=== PATIENT | male | born 1980 | race Caucasian/White ===

== ENCOUNTER 2017-11-14 17:10 | Inpatient (IN) | payer OTHER ==
[2017-11-14 20:10] VITALS: BMI 28.5
--- NOTE | 2017-11-15 01:58 | HP ---
CIWA Score - CIWA Score Nausea/Vomitin Muscle Tremors: 4-Moderate,w/Arms Extend Anxiety: 4-Mod. Anxious/Guarded Agitation: 0-Normal Activity Paroxysmal Sweats: No Perspiration Orientation: 1-Uncertain about Date Tacttile Disturbances: 3-Moderate Itch/Numb/Burn Auditory Disturbances: 0-None Visual Disturbances: 0-None Headache: 2-Mild CIWA-Ar Total Score: 16 Admission ROS S - HPI Chief Complaint: Alcohol withdrawal symptoms Allergies/Adverse Reactions: Allergies Allergy/AdvReac Type Severity Reaction Status Date / Time No Known Drug Allergies Allergy Verified 11/14/17 23:12 History of Present Illness: 37 years old male with a long history of alcohol dependence is seeking admission to detox. Patient reports that this is his first admission to [facility] and first detoxification. He denies any medical history and suicide attempt/ suicidal ideation at this time. He reports insignificant period of sobriety Exam Limitations: No Limitations - Ebola screening Have you traveled outside of the country in the last 21 days: No Have you had contact with anyone from an Ebola affected area: No Have you been sick,other than usual withdrawal symptoms: No Do you have a fever: No - Review of Systems Constitutional: Chills, Malaise, Weakness EENT: reports: No Symptoms Reported Respiratory: reports: No Symptoms reported Cardiac: reports: No Symptoms Reported GI: reports: Poor Appetite, Poor Fluid Intake, Abdominal cramping : reports: No Symptoms Reported Musculoskeletal: reports: No Symptoms Reported Integumentary: reports: No Symptoms Reported Neuro: reports: Headache, Tingling, Tremors Endocrine: reports: No Symptoms Reported Hematology: reports: No Symptoms Reported Psychiatric: reports: Mood/Affect Appropiate, Orientated x3 Other Systems: Reviewed and Negative Patient History - Patient Medical History Hx Anemia: No Hx Asthma: No Hx Chronic Obstructive Pulmonary Disease (COPD): No Hx Cardiac Disorders: No Hx Congestive Heart Failure: No Hx Hypertension: No Hx Hypercholesterolemia: No Hx Pacemaker: No HX Cerebrovascular Accident: No Hx Seizures: No Hx Dementia: No Hx Diabetes: No Hx Gastrointestinal Disorders: No Hx Liver Disease: No Hx Genitourinary Disorders: No Hx Sexually Transmitted Disorders: No Hx Renal Disease (ESRD): No Hx Thyroid Disease: No Hx Human Immunodeficiency Virus (HIV): No Hx Hepatitis C: No Hx Depression: No Hx Suicide Attempt: No (Denies suicide attempt and suicidal ideation at this time) Hx Bipolar Disorder: No Hx Schizophrenia: No - Patient Surgical History Past Surgical History: No Hx Neurologic Surgery: No Hx Cataract Extraction: No Hx Cardiac Surgery: No Hx Lung Surgery: No Hx Breast Surgery: No Hx Breast Biopsy: No Hx Abdominal Surgery: No Hx Appendectomy: No Hx Cholecystectomy: No Hx Genitourinary Surgery: No Hx Orthopedic Surgery: No Anesthesia Reaction: No - PPD History Previous Implant?: Yes Documented Results: Negative w/o proof - Smoking Cessation Smoking history: Current every day smoker Have you smoked in the past 12 months: Yes Aproximately how many cigarettes per day: 20 Initiated information on smoking cessation: Yes 'Breaking Loose' booklet given: 11/15/17 - Substances Abused Alcohol Route: Oral Frequency: Daily Amount used: Liquor 2-3 pints, Beer 2x 6pack Age of first use: 14 Date of Last Use: 11/14/17 Family Disease History - Family Disease History Family Disease History: Diabetes: Grandparent, CA: Grandparent, Respiratory: Mother (emphysema) Admission Physical Exam [facility] - Vital Signs Vital Signs: Vital Signs - 24 hr 11/14/17 20:09 Temperature 96.8 F L Pulse Rate 97 H Respiratory 20 Rate Blood Pressure 143/83 - Physical General Appearance: Yes: Moderate Distress, Tremorous, Irritable, Anxious HEENTM: Yes: EOMI, Normal ENT Inspection, Normal Voice, PARESH Respiratory: Yes: Normal Breath Sounds, No Respiratory Distress Neck: Yes: Supple Breast: Yes: Breast Exam Deferred Cardiology: Yes: Regular Rhythm, Regular Rate Abdominal: Yes: Normal Bowel Sounds Genitourinary: Yes: Within Normal Limits Back: Yes: Normal Inspection Musculoskeletal: Yes: Back pain, Other (neck pain) Extremities: Yes: Tremors Neurological: Yes: data warehouse consultant II-XII NML intact, Normal Mood/Affect Integumentary: Yes: Warm Lymphatic: Yes: Within Normal Limits - Diagnostic (1) Alcohol dependence with uncomplicated withdrawal Current Visit: Yes Status: Chronic Cleared for Admission [facility] - Detox or Rehab [facility] Level of Care: Medically Managed Detox Regimen/Protocol: Librium [facility] Breath Alcohol Content Breath Alcohol Content: 0.185 Urine Drug Screen - Results Drug Screen Negative: No Urine Drug Screen Results: THC-Marijuana
[2017-11-15] MEDS ORDERED: guaiFENesin/D-METHORPHAN HB 10 ML UNIT-DOSE CUPS PO PRN (02:02)
[2017-11-15] MEDS ORDERED: LOPERAMIDE HCL 2 MG CAPSULE PO PRN (02:02)
[2017-11-15] MEDS ORDERED: chlordiazePOXIDE HCL 25 MG CAPSULE PO PRN (02:02)
[2017-11-15] MEDS ORDERED: chlordiazePOXIDE HCL 25 MG CAPSULE PO ONE (02:02)
[2017-11-15] MEDS ORDERED: NICOTINE POLACRILEX 2 MG GUM BC PRN (02:02)
[2017-11-15] MEDS ORDERED: MENTHOL/PHENOL 1 EACH UD MM PRN (02:02)
[2017-11-15] MEDS ORDERED: MAGNESIUM CITRATE 300 ML BOTTLE PO PRN (02:02)
[2017-11-15] MEDS ORDERED: MAGNESIUM HYDROX 2400MG/30ML ORAL SUSPENSION 30 ML CUP PO PRN (02:02)
[2017-11-15] MEDS ORDERED: ACETAMINOPHEN 325 MG TABLET (FP) PO PRN (02:02)
[2017-11-15] MEDS ORDERED: P-EPHED 60MG/TRIPROLIDI 2.5MG TABLET PO PRN (02:02)
[2017-11-15] MEDS ORDERED: MAG HYDROX/AL HYDROX/SIMETH 30 ML UNIT-DOSE CUP PO PRN (02:02)
[2017-11-15] MEDS: chlordiazePOXIDE HCL 25 MG CAPSULE PO SCH ×4 (06:17→22:15)
[2017-11-15] MEDS: PRENATAL VITAMINS W/ FOLIC ACID TABLET (FP) PO SCH (10:16)
[2017-11-15] MEDS: NICOTINE 14 MG/24 HOURS TOPICAL PATCH TD SCH (10:16)
--- NOTE | 2017-11-15 13:31 | PN ---
[facility] Progress Note Note: PT ADMITTED EARLIER THIS MORNING. ALERT O X 3. C/O SWEATS/COLD,FATIGUE. CONTINUE DETOX
[2017-11-15 15:15] LABS: HEMATOCRIT 44.9 % (35.4-49); HEMOGLOBIN 15.2 GM/dL (11.7-16.9); MCH 33.8 pg (25.7-33.7); MCHC 33.8 g/dl (32.0-35.9); MEAN CELL VOLUME 100.1 fl (80-96); MEAN PLT VOLUME 10.5 fl (7.5-11.1); PLATELET COUNT 188 K/MM3 (134-434); RBC 4.49 M/mm3 (4.00-5.60); RDW 13.1 % (11.9-15.9); WHITE BLOOD COUNT 5.7 K/mm3 (4.0-10.0)
[2017-11-15 15:47] LABS: CHLORIDE 102 mmol/L (98-107); POTASSIUM 3.9 mmol/L (3.5-5.1); SODIUM 141 mmol/L (136-145)
[2017-11-15 15:56] LABS: ALBUMIN 3.2 g/dl (3.4-5.0); ALK PHOS 91 U/L (45-117); ANION GAP 8 MMOL/L (8-16); BILIRUBIN,TOTAL 0.7 mg/dL (0.2-1.0); BLOOD UREA NITROGEN 11 mg/dL (7-18); CALCIUM 8.9 mg/dL (8.5-10.1); CO2 31 mmol/L (21-32); CREATININE 0.7 mg/dL (0.7-1.3); GLUCOSE,RANDOM 105 mg/dL (74-106); SGOT/AST 75 U/L (15-37); SGPT/ALT 78 U/L (12-78); TOT PROT 6.5 g/dl (6.4-8.2)
--- NOTE | 2017-11-15 16:56 | PN ---
[facility] Progress Note Note: Vital Signs Temperature 95.4 F L 11/15/17 13:38 Pulse Rate 68 11/15/17 13:38 Respiratory Rate 18 11/15/17 13:38 Blood Pressure 133/73 11/15/17 13:38 O2 Sat by Pulse Oximetry (%) Laboratory Last Values WBC 5.7 K/mm3 (4.0-10.0) 11/15/17 11:00 RBC 4.49 M/mm3 (4.00-5.60) 11/15/17 11:00 Hgb 15.2 GM/dL (11.7-16.9) 11/15/17 11:00 Hct 44.9 % (35.4-49) 11/15/17 11:00 MCV 100.1 fl (80-96) H 11/15/17 11:00 MCH 33.8 pg (25.7-33.7) H 11/15/17 11:00 MCHC 33.8 g/dl (32.0-35.9) 11/15/17 11:00 RDW 13.1 % (11.9-15.9) 11/15/17 11:00 Plt Count 188 K/MM3 (134-434) 11/15/17 11:00 MPV 10.5 fl (7.5-11.1) 11/15/17 11:00 Sodium 141 mmol/L (136-145) 11/15/17 11:00 Potassium 3.9 mmol/L (3.5-5.1) 11/15/17 11:00 Chloride 102 mmol/L (98-107) 11/15/17 11:00 Carbon Dioxide 31 mmol/L (21-32) 11/15/17 11:00 Anion Gap 8 MMOL/L (8-16) 11/15/17 11:00 BUN 11 mg/dL (7-18) 11/15/17 11:00 Creatinine 0.7 mg/dL (0.7-1.3) 11/15/17 11:00 Creat Clearance w eGFR > 60 (>60) 11/15/17 11:00 Random Glucose 105 mg/dL (74-106) 11/15/17 11:00 Calcium 8.9 mg/dL (8.5-10.1) 11/15/17 11:00 Total Bilirubin 0.7 mg/dL (0.2-1.0) 11/15/17 11:00 AST 75 U/L (15-37) H 11/15/17 11:00 ALT 78 U/L (12-78) 11/15/17 11:00 Alkaline Phosphatase 91 U/L (45-117) 11/15/17 11:00 Total Protein 6.5 g/dl (6.4-8.2) 11/15/17 11:00 Albumin 3.2 g/dl (3.4-5.0) L 11/15/17 11:00 Patient c/o of dentalgia anbesol PRN ibuprofen PRN continue to monitor
[2017-11-15] MEDS: BENZOCAINE 20 % GEL TUBE MM PRN ×2 (18:56→22:15)
[2017-11-15] MEDS ORDERED: MELATONIN 5 MG TABLETS PO PRN (22:00)
[2017-11-15] MEDS: THIAMINE HCL 100 MG TABLET (FP) PO SCH (22:15)
[2017-11-15] MEDS: IBUPROFEN 400 MG TABLET (FP) PO PRN (22:16)
[2017-11-16] MEDS: chlordiazePOXIDE HCL 25 MG CAPSULE PO SCH ×4 (05:34→22:23)
[2017-11-16] MEDS: IBUPROFEN 400 MG TABLET (FP) PO PRN ×3 (05:34→22:24)
[2017-11-16] MEDS: NICOTINE 14 MG/24 HOURS TOPICAL PATCH TD SCH (10:13)
[2017-11-16] MEDS: PRENATAL VITAMINS W/ FOLIC ACID TABLET (FP) PO SCH (10:13)
--- NOTE | 2017-11-16 11:45 | EKG ---
Test Reason : Blood Pressure : / mmHG Vent. Rate : 058 BPM Atrial Rate : 058 BPM P-R Int : 134 ms QRS Dur : 080 ms QT Int : 432 ms P-R-T Axes : 040 015 037 degrees QTc Int : 424 ms SINUS BRADYCARDIA OTHERWISE NORMAL ECG NO PREVIOUS ECGS AVAILABLE Confirmed by VERN TIMMONS, ABBI ([id number]) on 11/16/2017 11:44:56 AM Referred By: Confirmed By:ABBI PORRAS MD
[2017-11-16] MEDS ORDERED: AMOX TR/POT CLAV 875MG/125MG TABLETS (FP) PO ONE (14:20)
--- NOTE | 2017-11-16 15:08 | PN ---
S CIWA - CIWA Score Nausea/Vomitin-No Nausea/No Vomiting Muscle Tremors: 4-Moderate,w/Arms Extend Anxiety: 5 Agitation: 4-Moderately Restless Paroxysmal Sweats: No Perspiration Orientation: 0-Oriented Tacttile Disturbances: 0-None Auditory Disturbances: 0-None Visual Disturbances: 0-None Headache: 0-None Present CIWA-Ar Total Score: 13 [facility] Progress Note (SOAP) Subjective: ANXIETY CHILLS,SWEATS, TOOTHACHE LEFT UPPER JAW AREA. Objective: 11/16/17 15:04 Vital Signs 11/16/17 11/16/17 09:11 13:20 Temperature 98.2 F 97.5 F L Pulse Rate 82 58 L Respiratory 18 18 Rate Blood Pressure 125/78 110/73 Laboratory Tests 11/15/17 11/15/17 11/15/17 11:00 11:00 11:00 WBC 5.7 RBC 4.49 Hgb 15.2 Hct 44.9 MCV 100.1 H MCH 33.8 H MCHC 33.8 RDW 13.1 Plt Count 188 MPV 10.5 Sodium 141 Potassium 3.9 Chloride 102 Carbon Dioxide 31 Anion Gap 8 BUN 11 Creatinine 0.7 Creat Clearance w eGFR > 60 Random Glucose 105 Calcium 8.9 Total Bilirubin 0.7 AST 75 H ALT 78 Alkaline Phosphatase 91 Total Protein 6.5 Albumin 3.2 L RPR Titer Nonreactive HIV 1&2 Antibody Screen HIV P24 Antigen 11/15/17 11:05 WBC RBC Hgb Hct MCV MCH MCHC RDW Plt Count MPV Sodium Potassium Chloride Carbon Dioxide Anion Gap BUN Creatinine Creat Clearance w eGFR Random Glucose Calcium Total Bilirubin AST ALT Alkaline Phosphatase Total Protein Albumin RPR Titer HIV 1&2 Antibody Screen Negative HIV P24 Antigen Negative ORAL EXAM: LEFT UPPER MOLAR SWELLING AND REDNESS OF GUM. TOOTH DECAYED. OTHER TEETH IN STATE OF POOR REPAIR; MULTIPLE TOOTH LOSSES. 11/16/17 15:07 Assessment: 11/16/17 15:05 WITHDRAWAL SX TOOTH ABSCESS GINGIVITIS Plan: CONTINUE DETOX AUGMENTIN 875 MG PO BID LIDOCAINE VISCOUS DIRECTED.
[2017-11-16] MEDS: AMOX TR/POT CLAV 875MG/125MG TABLETS (FP) PO SCH (16:55)
[2017-11-16 17:18] LABS: URINE APPEARANCE SLCLOUDY; URINE BILIRUBIN NEGATIVE (<2.0 mg/dL); URINE COLOR YELLOW; URINE GLUCOSE (UA) NEGATIVE (NEGATIVE); URINE KETONE NEGATIVE (NEGATIVE); URINE LEUK ESTERASE NEGATIVE (NEGATIVE); URINE NITRITE NEGATIVE (NEGATIVE); URINE PROTEIN NEGATIVE (NEGATIVE); URINE UROBILINOGEN NEGATIVE mg/dL (0.2-1.0)
[2017-11-16] MEDS: THIAMINE HCL 100 MG TABLET (FP) PO SCH (22:22)
[2017-11-17] MEDS: chlordiazePOXIDE 5 MG CAPSULE PO SCH ×2 (05:35→10:28)
[2017-11-17] MEDS: IBUPROFEN 400 MG TABLET (FP) PO PRN (05:35)
[2017-11-17] MEDS: AMOX TR/POT CLAV 875MG/125MG TABLETS (FP) PO SCH (07:21)
[2017-11-17 09:08] VITALS: BP 143/92; PULSE 72; TEMP 97
[2017-11-17] MEDS: PRENATAL VITAMINS W/ FOLIC ACID TABLET (FP) PO SCH (10:28)
[2017-11-17] MEDS: NICOTINE 14 MG/24 HOURS TOPICAL PATCH TD SCH (10:28)
--- NOTE | 2017-11-17 15:27 | PN ---
S CIWA - CIWA Score Nausea/Vomitin-Mild Nausea/No Vomiting Muscle Tremors: None Anxiety: 1-Mildly Anxious Agitation: 0-Normal Activity Paroxysmal Sweats: 1-Minimal Palms Moist Orientation: 0-Oriented Tacttile Disturbances: 0-None Auditory Disturbances: 0-None Visual Disturbances: 0-None Headache: 0-None Present CIWA-Ar Total Score: 3 [facility] Progress Note (SOAP) Subjective: PATIENT PRESENTS WITH MILD ANXIETY, STOMACH CRAMPS AND COLD SWEATS. Objective: 11/17/17 15:26 Vital Signs Temperature 97 F L 11/17/17 09:06 Pulse Rate 72 11/17/17 09:06 Respiratory Rate 20 11/17/17 09:06 Blood Pressure 143/92 11/17/17 09:06 O2 Sat by Pulse Oximetry (%) Laboratory Tests 11/15/17 11/15/17 11/15/17 11:00 11:00 11:00 WBC 5.7 RBC 4.49 Hgb 15.2 Hct 44.9 MCV 100.1 H MCH 33.8 H MCHC 33.8 RDW 13.1 Plt Count 188 MPV 10.5 Sodium 141 Potassium 3.9 Chloride 102 Carbon Dioxide 31 Anion Gap 8 BUN 11 Creatinine 0.7 Creat Clearance w eGFR > 60 Random Glucose 105 Calcium 8.9 Total Bilirubin 0.7 AST 75 H ALT 78 Alkaline Phosphatase 91 Total Protein 6.5 Albumin 3.2 L Urine Color Urine Appearance Urine pH Ur Specific [place] Urine Protein Urine Glucose (UA) Urine Ketones Urine Blood Urine Nitrite Urine Bilirubin Urine Urobilinogen Ur Leukocyte Esterase RPR Titer Nonreactive HIV 1&2 Antibody Screen HIV P24 Antigen 11/15/17 11/16/17 11:05 16:45 WBC RBC Hgb Hct MCV MCH MCHC RDW Plt Count MPV Sodium Potassium Chloride Carbon Dioxide Anion Gap BUN Creatinine Creat Clearance w eGFR Random Glucose Calcium Total Bilirubin AST ALT Alkaline Phosphatase Total Protein Albumin Urine Color Yellow Urine Appearance Slcloudy Urine pH 6.0 Ur Specific [place] 1.013 Urine Protein Negative Urine Glucose (UA) Negative Urine Ketones Negative Urine Blood Negative Urine Nitrite Negative Urine Bilirubin Negative Urine Urobilinogen Negative Ur Leukocyte Esterase Negative RPR Titer HIV 1&2 Antibody Screen Negative HIV P24 Antigen Negative SKIN: MOIST AND INTACT CAR: S1S2 RESP: CTA BL EXT: NO EDEMA Assessment: 11/17/17 15:26 WITHDRAWAL SYNDROME Plan: CONTINUE DETOX PER PROTOCOL
--- NOTE | 2017-11-17 16:37 | DS ---
[facility] Detox Discharge Summary Admission Date: 11/14/17 - History Present History: Alcohol Dependence - Physical Exam Results Vital Signs: Vital Signs Temperature 97 F L 11/17/17 09:06 Pulse Rate 72 11/17/17 09:06 Respiratory Rate 20 11/17/17 09:06 Blood Pressure 143/92 11/17/17 09:06 O2 Sat by Pulse Oximetry (%) - Treatment Hospital Course: Detox Protocol Followed, Detoxed Safely, Responded well, Discharged Condition Good - Medication Discharge Medications: Ambulatory Orders Amox-Tr/K Cl [Augmentin - 875Mg Tablet] 1 tab PO BID 7 Days #14 tablet 11/17/17 - AMA Did Patient Leave Against Medical Advice: No
[2017-11-18] MEDS ORDERED: chlordiazePOXIDE HCL 10 MG CAPSULE PO SCH (05:00)
== END 2017-11-17 11:36 | disposition home or self-care (01) | DRG 775 ==
LOC: YASAS 17:10 → Y3N 23:38
PROC: HZ2ZZZZ Detoxification Services for Substance Abuse Treatment (ICD-10-PCS; principal; 2017-11-14)
DX: F10.230 Alcohol dependence with withdrawal, uncomplicated (principal); K04.7 Periapical abscess without sinus; K05.10 Chronic gingivitis, plaque induced; Z91.89 Other specified personal risk factors, not elsewhere classified
CPT/HCPCS: 36415; 80053; 81003; 85027; 86593; 87389; 93005; 93010

== ENCOUNTER 2018-10-23 14:47 | Inpatient (IN) | payer OTHER ==
[2018-10-23 20:19] VITALS: BMI 30.7
--- NOTE | 2018-10-23 21:18 | HP ---
CIWA Score Nausea/Vomitin (Vomiting x 2) Muscle Tremors: 3 Anxiety: 0-No Anxiety, at Ease Agitation: 0-Normal Activity Paroxysmal Sweats: 2 Orientation: 0-Oriented Tacttile Disturbances: 3-Moderate Itch/Numb/Burn Auditory Disturbances: 0-None Visual Disturbances: 0-None Headache: 4-Moderately Severe CIWA-Ar Total Score: 15 - Admission Criteria [facility] Guidelines: Admission for Medically Managed Detox: Requires at least one of the followin. CIWA greater than 12 2. Seizures within the past 24 hours 3. Delirium tremens within the past 24 hours 4. Hallucinations within the past 24 hours 5. Acute intervention needed for co occurring medical disorder 6. Acute intervention needed for co occurring psychiatric disorder 7. Severe withdrawal that cannot be handled at a lower level of care (continued vomiting, continued diarrhea, abnormal vital signs) requiring intravenous medication and/or fluids 8. Admission ROS [facility] Chief Complaint: Alcohol withdrawal symptoms Allergies/Adverse Reactions: Allergies Allergy/AdvReac Type Severity Reaction Status Date / Time No Known Drug Allergies Allergy Verified 10/23/18 20:15 History of Present Illness: 38 years old male with a long history of alcohol dependence is seeking admission to detox. He was last in detox for 11/14/2017 - 11/17/2017 and recently relapsed as a result of marital issues. He reports 11 months of sobriety. He denies any medical history and psychiatric history. Patient denies suicidal attempt and suicidal ideation at this time. - Ebola screening Have you traveled outside of the country in the last 21 days: No (N) Have you had contact with anyone from an Ebola affected area: No Do you have a fever: No - Review of Systems Constitutional: Loss of Appetite, Malaise, Changes in sleep EENT: reports: No Symptoms Reported Respiratory: reports: No Symptoms reported Cardiac: reports: No Symptoms Reported GI: reports: Poor Appetite, Poor Fluid Intake, Vomiting ( x 2), Abdominal cramping : reports: No Symptoms Reported Musculoskeletal: reports: No Symptoms Reported Integumentary: reports: Dryness, Flushing Neuro: reports: Tremors Endocrine: reports: No Symptoms Reported Hematology: reports: No Symptoms Reported Psychiatric: reports: Mood/Affect Appropiate, Orientated x3, Depressed Other Systems: Reviewed and Negative Patient History - Patient Medical History Hx Anemia: No Hx Asthma: No Hx Chronic Obstructive Pulmonary Disease (COPD): No Hx Cardiac Disorders: No Hx Congestive Heart Failure: No Hx Hypertension: No Hx Hypercholesterolemia: No Hx Pacemaker: No HX Cerebrovascular Accident: No Hx Seizures: No Hx Dementia: No Hx Diabetes: No Hx Gastrointestinal Disorders: No Hx Liver Disease: No Hx Genitourinary Disorders: No Hx Sexually Transmitted Disorders: No Hx Renal Disease (ESRD): No Hx Thyroid Disease: No Hx Human Immunodeficiency Virus (HIV): No Hx Hepatitis C: No Hx Depression: No Hx Suicide Attempt: No (Denies suicide attempt and suicidal ideation at this time) Hx Bipolar Disorder: No Hx Schizophrenia: No - Patient Surgical History Past Surgical History: No Hx Neurologic Surgery: No Hx Cataract Extraction: No Hx Cardiac Surgery: No Hx Lung Surgery: No Hx Breast Surgery: No Hx Breast Biopsy: No Hx Abdominal Surgery: No Hx Appendectomy: No Hx Cholecystectomy: No Hx Genitourinary Surgery: No Hx Orthopedic Surgery: No Anesthesia Reaction: No - PPD History Previous Implant?: Yes Documented Results: Negative w/proof Implanted On Prior [facility] Admission?: Yes Date: 11/17/17 PPD to be Administered?: Yes - Reproductive History Patient is a Female of Child Bearing Age (11 -55 yrs old): No (male) - Smoking Cessation Smoking history: Current every day smoker Have you smoked in the past 12 months: Yes Aproximately how many cigarettes per day: 20 Hx Chewing Tobacco Use: No Initiated information on smoking cessation: Yes 'Breaking Loose' booklet given: 10/23/18 - Substance & Tx. History Hx Alcohol Use: Yes Hx Substance Use: Yes Substance Use Type: Alcohol Hx Substance Use Treatment: Yes ([facility]) - Substances abused Alcohol Substance route: Oral Frequency: Daily Amount used: 1 liter of Vodka/day Age of first use: 15 Date of last use: 10/23/18 Family Disease History - Family Disease History Family Disease History: Diabetes: Grandparent (Alive), CA: Grandparent, Respiratory: Mother (emphysema) Admission Physical Exam [facility] - Vital Signs Vital Signs: Vital Signs - 24 hr 10/23/18 20:16 Temperature 98.4 F Pulse Rate 80 Respiratory 18 Rate Blood Pressure 142/90 - Physical General Appearance: Yes: Moderate Distress, Tremorous, Irritable, Sweating HEENTM: Yes: Nasal Congestion Respiratory: Yes: Lungs Clear, Normal Breath Sounds, No Respiratory Distress Neck: Yes: Supple, Trachea in good position Breast: Yes: Breast Exam Deferred Cardiology: Yes: Regular Rhythm, Regular Rate Abdominal: Yes: Normal Bowel Sounds Genitourinary: Yes: Within Normal Limits Back: Yes: Normal Inspection Musculoskeletal: Yes: Within Normal Limits Extremities: Yes: Tremors Neurological: Yes: Alert, Normal Mood/Affect Integumentary: Yes: Within Normal Limits Lymphatic: Yes: Within Normal Limits - Diagnostic (1) Alcohol dependence with uncomplicated withdrawal Current Visit: Yes Status: Acute (2) Nicotine dependence Current Visit: Yes Status: Chronic Qualifiers: Nicotine product type: cigarettes Substance use status: uncomplicated Qualified Code(s): F17.210 - Nicotine dependence, cigarettes, uncomplicated Cleared for Admission S - Detox or Rehab S Level of Care: Medically Managed Detox Regimen/Protocol: Librium Breathalyzer - Breathalyzer Breathalyzer: 0.046 Urine Drug Screen - Test Device Lot number: [id number] Expiration date: 08/04/20 - Control Is test valid?: Yes - Results Drug screen NEGATIVE: No Urine drug screen results: THC-Marijuana Inpatient Rehab Admission - Rehab Decision to Admit Inpatient rehab admission?: No
[2018-10-23] MEDS ORDERED: chlordiazePOXIDE HCL 25 MG CAPSULE PO PRN (21:30)
[2018-10-23] MEDS ORDERED: IBUPROFEN 400 MG TABLET (FP) PO PRN (21:30)
[2018-10-23] MEDS ORDERED: MELATONIN 5 MG TABLETS PO PRN (21:30)
[2018-10-23] MEDS ORDERED: MAGNESIUM CITRATE 300 ML BOTTLE PO PRN (21:30)
[2018-10-23] MEDS ORDERED: ACETAMINOPHEN 325 MG TABLET (FP) PO PRN ×2 (21:30)
[2018-10-23] MEDS ORDERED: MENTHOL/PHENOL 1 EACH UD MM PRN (21:30)
[2018-10-23] MEDS ORDERED: BISMUTH SUBSALICYLATE 524 MG/30 ML UD PO PRN (21:30)
[2018-10-23] MEDS ORDERED: METHOCARBAMOL 500 MG TABLET PO PRN (21:30)
[2018-10-23] MEDS ORDERED: NICOTINE POLACRILEX 2 MG GUM BUC PRN (21:30)
[2018-10-23] MEDS ORDERED: MAGNESIUM HYDROX 2400MG/30ML ORAL SUSPENSION 30 ML CUP PO PRN (21:30)
[2018-10-23] MEDS ORDERED: MAG HYDROX/AL HYDROX/SIMETH 30 ML UNIT-DOSE CUP PO PRN (21:30)
[2018-10-23] MEDS ORDERED: hydrOXYzine PAMOATE 25 MG CAPSULE (FP) PO PRN (21:30)
[2018-10-23] MEDS ORDERED: THIAMINE HCL 100 MG TABLET (FP) PO SCH (22:00)
[2018-10-23] MEDS: chlordiazePOXIDE HCL 25 MG CAPSULE PO SCH (23:48)
[2018-10-24] MEDS: chlordiazePOXIDE HCL 25 MG CAPSULE PO SCH ×2 (04:45→10:22)
[2018-10-24] MEDS ORDERED: PRENATAL VITAMINS W/ FOLIC ACID TABLET (FP) PO SCH (10:00)
[2018-10-24] MEDS ORDERED: NICOTINE 14 MG/24 HOURS TOPICAL PATCH TD SCH (10:00)
[2018-10-24 11:01] LABS: ALBUMIN 3.3 g/dl (3.4-5.0); BLOOD UREA NITROGEN 7.9 mg/dL (7-18); CALCIUM 8.9 mg/dL (8.5-10.1); CREATININE 0.8 mg/dL (0.55-1.3); POTASSIUM 3.9 mmol/L (3.5-5.1); TOT PROT 6.7 g/dl (6.4-8.2)
[2018-10-24 11:13] LABS: HEMATOCRIT 44.9 % (35.4-49); HEMOGLOBIN 15.4 GM/dL (11.7-16.9); MCH 33.9 pg (25.7-33.7); MCHC 34.4 g/dl (32.0-35.9); MEAN CELL VOLUME 98.4 fl (80-96); MEAN PLT VOLUME 9.8 fl (7.5-11.1); PLATELET COUNT 166 K/MM3 (134-434); RBC 4.56 M/mm3 (4.00-5.60); RDW 13.4 % (11.9-15.9); WHITE BLOOD COUNT 5.7 K/mm3 (4.0-10.0)
[2018-10-24 13:00] VITALS: BP 118/73; PULSE 62; TEMP 97.1
--- NOTE | 2018-10-24 14:17 | PN ---
S CIWA - CIWA Score Nausea/Vomitin Muscle Tremors: 2 Anxiety: 3 Agitation: 3 Paroxysmal Sweats: No Perspiration Orientation: 0-Oriented Tacttile Disturbances: 1-Very Mild Itch/Numbness Auditory Disturbances: 0-None Visual Disturbances: 0-None Headache: 2-Mild CIWA-Ar Total Score: 13 S Progress Note (SOAP) Subjective: alert,irritable,anxious,interrupted sleep,tremor Objective: 10/24/18 14:15 Vital Signs Temperature 97.1 F L 10/24/18 12:59 Pulse Rate 62 10/24/18 12:59 Respiratory Rate 18 10/24/18 12:59 Blood Pressure 118/73 10/24/18 12:59 O2 Sat by Pulse Oximetry (%) Laboratory Last Values WBC 5.7 K/mm3 (4.0-10.0) 10/24/18 07:50 RBC 4.56 M/mm3 (4.00-5.60) 10/24/18 07:50 Hgb 15.4 GM/dL (11.7-16.9) 10/24/18 07:50 Hct 44.9 % (35.4-49) 10/24/18 07:50 MCV 98.4 fl (80-96) H 10/24/18 07:50 MCH 33.9 pg (25.7-33.7) H 10/24/18 07:50 MCHC 34.4 g/dl (32.0-35.9) 10/24/18 07:50 RDW 13.4 % (11.9-15.9) 10/24/18 07:50 Plt Count 166 K/MM3 (134-434) 10/24/18 07:50 MPV 9.8 fl (7.5-11.1) 10/24/18 07:50 Sodium 139 mmol/L (136-145) 10/24/18 07:50 Potassium 3.9 mmol/L (3.5-5.1) 10/24/18 07:50 Chloride 105 mmol/L (98-107) 10/24/18 07:50 Carbon Dioxide 26 mmol/L (21-32) 10/24/18 07:50 Anion Gap 7 MMOL/L (8-16) L 10/24/18 07:50 BUN 7.9 mg/dL (7-18) 10/24/18 07:50 Creatinine 0.8 mg/dL (0.55-1.3) 10/24/18 07:50 Est GFR (CKD-EPI)AfAm 130.42 10/24/18 07:50 Est GFR (CKD-EPI)NonAf 112.53 10/24/18 07:50 Random Glucose 102 mg/dL (74-106) 10/24/18 07:50 Calcium 8.9 mg/dL (8.5-10.1) 10/24/18 07:50 Total Bilirubin 1.0 mg/dL (0.2-1) 10/24/18 07:50 AST 51 U/L (15-37) H 10/24/18 07:50 ALT 70 U/L (13-61) H 10/24/18 07:50 Alkaline Phosphatase 97 U/L (45-117) 10/24/18 07:50 Total Protein 6.7 g/dl (6.4-8.2) 10/24/18 07:50 Albumin 3.3 g/dl (3.4-5.0) L 10/24/18 07:50 RPR Titer Nonreactive (NONREACTIVE) 10/24/18 07:50 Assessment: 10/24/18 14:16 withdrawal symptom Plan: continue detox librium regimen
--- NOTE | 2018-10-24 14:20 | PN ---
[facility] Progress Note Note: patient did not want to complete treatment,all attempt to convince patient to stay with no avail, high risk of relapsing explained to patient,patient understood,patient signed release марина LEARY counselor
--- NOTE | 2018-10-24 14:29 | DS ---
[facility] Detox Discharge Summary Admission Date: 10/23/18 10/23/18 Discharge Date: 10/24/18 - History Present History: Alcohol Dependence Additional Comments: patient signed release AMA Pertinent Past History: nicotine dependence - Physical Exam Results Vital Signs: Vital Signs Temperature 97.1 F L 10/24/18 12:59 Pulse Rate 62 10/24/18 12:59 Respiratory Rate 18 10/24/18 12:59 Blood Pressure 118/73 10/24/18 12:59 O2 Sat by Pulse Oximetry (%) - Medication Discharge Medications: Ambulatory Orders NK [No Known Home Medication] 10/23/18 - Diagnosis (1) Alcohol dependence with uncomplicated withdrawal Current Visit: Yes Status: Acute (2) Nicotine dependence Current Visit: Yes Status: Chronic Qualifiers: Nicotine product type: cigarettes Substance use status: uncomplicated Qualified Code(s): F17.210 - Nicotine dependence, cigarettes, uncomplicated - AMA Did Patient Leave Against Medical Advice: Yes
[2018-10-25] MEDS ORDERED: chlordiazePOXIDE HCL 25 MG CAPSULE PO SCH (05:00)
--- NOTE | 2018-10-25 13:41 | EKG ---
Test Reason : Blood Pressure : / mmHG Vent. Rate : 073 BPM Atrial Rate : 073 BPM P-R Int : 114 ms QRS Dur : 086 ms QT Int : 398 ms P-R-T Axes : 038 -07 036 degrees QTc Int : 438 ms NORMAL SINUS RHYTHM NORMAL ECG WHEN COMPARED WITH ECG OF 15-NOV-2017 03:12, NO SIGNIFICANT CHANGE WAS FOUND Confirmed by ABBI PORRAS MD ([id number]) on 10/25/2018 1:40:40 PM Referred By: Confirmed By:ABBI PORRAS MD
[2018-10-26] MEDS ORDERED: chlordiazePOXIDE HCL 10 MG CAPSULE PO PRN
[2018-10-26] MEDS ORDERED: chlordiazePOXIDE HCL 10 MG CAPSULE PO SCH (05:00)
[2018-10-27] MEDS ORDERED: chlordiazePOXIDE HCL 10 MG CAPSULE PO SCH (05:00)
[2018-10-28] MEDS ORDERED: chlordiazePOXIDE HCL 10 MG CAPSULE PO ONE (05:00)
== END 2018-10-24 13:55 | disposition left against medical advice (07) | DRG 770 ==
LOC: YASAS 14:47 → Y3N 23:10
PROVIDERS: ADMIT Surgery; ATTEND Surgery
PROC: HZ2ZZZZ Detoxification Services for Substance Abuse Treatment (ICD-10-PCS; principal; 2018-10-23)
DX: F10.230 Alcohol dependence with withdrawal, uncomplicated (principal); F17.210 Nicotine dependence, cigarettes, uncomplicated
CPT/HCPCS: 36415; 80053; 85027; 86480; 86593; 93005; 93010